=== PATIENT | male | born 1970 | race Caucasian/White ===

== ENCOUNTER 2017-10-04 09:27 | Emergency (ER) | payer BC, OTHER ==
[2017-10-04 09:38] VITALS: TEMP 97.5
--- NOTE | 2017-10-04 09:46 | ED ---
Overdose HPI - General Chief Complaint: Overdose Stated Complaint: Heroin Overdose Time Seen by Provider: 10/04/17 09:29 Source: EMS, RN notes reviewed, old records reviewed Mode of arrival: EMS Limitations: no limitations - History of Present Illness Initial Comments: 46-year-old male presents by his parents chief complaint I fell heroin overdose. He reports that he uses once every 2-3 days. Patient's fianc within the house any she heard a loud noise in the bathroom. She ran in to see the Patient unconscious and not breathing. She called 911. Patient had agonal breaths on EMS arrival. Was given 0.8 mg of Narcan IM. His respirations then re-occurred. Patient reports that this was not a suicide attempt. Denies any other symptoms. MD Complaint: accidental overdose Onset/Timin -: hour(s) Intent: unknown How Overdose Was Discovered: family/friend present at time Context: Intentional Overdose: drug/ETOH problems Context: Accidental Overdose: wanted to get high Treatments Prior to Arrival: narcan - Related Data Home Medications Medication Instructions Recorded Confirmed No Known Home Medications [No 10/04/17 10/04/17 Known Home Medications] Allergies Allergy/AdvReac Type Severity Reaction Status Date / Time No Known Allergies Allergy Verified 10/04/17 09:34 Review of Systems ROS Statement: Those systems with pertinent positive or pertinent negative responses have been documented in the HPI. ROS Other: All systems not noted in ROS Statement are negative. Past Medical History Past Medical History: No Reported History History of Any Multi-Drug Resistant Organisms: None Reported Past Surgical History: No Surgical Hx Reported Past Psychological History: No Psychological Hx Reported Smoking Status: Current some day smoker Past Alcohol Use History: None Reported Past Drug Use History: Heroin, IV Drug Use General Exam - General Exam Comments Initial Comments: Alert and oriented 46-year-old male. No significant distress. Patient is tearful and regretful of his decisions. Limitations: no limitations General appearance: alert, in no apparent distress Head exam: Present: atraumatic, normocephalic, normal inspection Eye exam: Present: PERRL, EOMI. Absent: normal appearance (Pinpoint pupils), scleral icterus, conjunctival injection, periorbital swelling ENT exam: Present: normal exam, mucous membranes moist Neck exam: Present: normal inspection. Absent: tenderness, meningismus, lymphadenopathy Respiratory exam: Present: normal lung sounds bilaterally. Absent: respiratory distress, wheezes, rales, rhonchi, stridor Cardiovascular Exam: Present: regular rate, normal rhythm, normal heart sounds. Absent: systolic murmur, diastolic murmur, rubs, gallop, clicks GI/Abdominal exam: Present: soft, normal bowel sounds. Absent: distended, tenderness, guarding, rebound, rigid Extremities exam: Present: normal inspection, full ROM, normal capillary refill , other (track yap left forearm). Absent: tenderness, pedal edema, joint swelling, calf tenderness Back exam: Present: normal inspection Neurological exam: Present: alert, oriented X3, CN II-XII intact Psychiatric exam: Present: normal affect, normal mood Course Vital Signs 10/04/17 10/04/17 09:29 10:46 Temperature 97.5 F L Pulse Rate 80 86 Respiratory 18 16 Rate Blood Pressure 126/81 121/56 O2 Sat by Pulse 98 99 Oximetry - Reevaluation(s) Reevaluation #1: 10/04/17 11:07 Patient is reevaluated alert and oriented. Resting comfortably in bed. Reiterated the Patient needs follow up with substance abuse counseling. Patient agrees. We given referrals. Patient is discharged at this time. Medical Decision Making - Medical Decision Making 46-year-old male presents raise her minutes status post heroin overdose. [place] 8 mg of Narcan were given on scene. Patient resumed respirations has been alert and oriented since that time. Patient's are with his fiance found him. Patient is tearful and regretful and exam room. Discussed monitoring for an hour and half x-rays no rebound. Patient has been resting comfortably in the bed. Vital signs are stable. Pupils. Pupils were pinpoint on initial examination. Alarming examination they're equal and reactive bilaterally. Patient is alert and oriented. I had a long lengthy discussion the Patient follow-up with substance abuse counseling and rehab services. Disposition Clinical Impression: Accidental overdose of heroin Disposition: HOME SELF-CARE Condition: Good Instructions: Narcotic Abuse (ED) Additional Instructions: Patient advised to follow-up with substance abuse counseling services. Return to emergency department if any alarming signs or symptoms occur. Is patient prescribed a controlled substance at d/c from ED?: No When asked, does pt state using other controlled substances?: No If prescribed controlled substance>3 days was MAPS reviewed?: No If opioid is for acute pain is fill amount 7 days or less?: No If Rx opioid, was Start Talking consent form obtained?: No Referrals: None,Stated [Primary Care Provider] - 1-2 days Cat Shelley MD [STAFF PHYSICIAN] - 1-2 days Time of Disposition: 11:07
[2017-10-04 10:48] VITALS: BP 121/56
[2017-10-04 11:18] VITALS: PULSE 63; RESP 20
== END 2017-10-04 11:18 | disposition home or self-care (01) ==
LOC: EC 09:27
DX: T40.1X1A Poisoning by heroin, accidental (unintentional), initial encounter (principal); F17.200 Nicotine dependence, unspecified, uncomplicated
CPT/HCPCS: 99284